=== PATIENT | female | born 1980 | race Caucasian/White ===

== ENCOUNTER 2020-04-17 14:41 | Emergency (ER) | payer SELFPAY ==
[~2020-04-17] VITALS: Ht 167.6 cm; Wt 106.6 kg
[~2020-04-17 14:41] MED LIST: ALBU90OI INH; CEPH500; DOXY100 PO; GUAPHELA PO; OXYACE5T PO; OXYC5 PO; PROM25 PO
[2020-04-17] MEDS ORDERED: Veetids 500500 MG PO (14:58)
== END 2020-04-17 15:30 | disposition home or self-care (01) ==
LOC: ER 14:41
DX: K04.7 Periapical abscess without sinus (principal)
CPT/HCPCS: 99282